=== PATIENT | female | born 1955 | race Caucasian/White ===

== ENCOUNTER → 2020-06-11 09:00 | Outpatient (CLI) | payer MEDICARE, MEDICAID, SELFPAY ==
--- NOTE | 2020-06-11 09:04 | DI.RAD.S_ITS ---
PROCEDURE: XR LUMBAR SPINE MIN 4V INDICATIONS: Lumbar radiculopathy TECHNIQUE: 5 total views of the lumbar spine were acquired, including bilateral oblique views. COMPARISON: [facility], RG, MRI L-SPINE W/O CONTRAST, 02/19/2020, 15:22. [facility], MR, L-SPINE WITHOUT CONTRAST, 11/07/2015, 8:21. [facility] [place], CR, SPINE LUMB 2 OR 3VW, 10/30/2015, 14:01. FINDINGS: Bones: Mild levoconvex scoliotic curvature is noted. 5 nonrib-bearing vertebrae are present. No vertebral body compression fractures. No suspicious bony lesions. Moderate disc space narrowing can be seen at L3-4 and L4-5. The disc heights otherwise appear well-preserved. Lower lumbar spine facet arthropathy is seen. Soft tissues: Overlying bowel gas pattern is normal. No suspicious soft tissue calcifications. An aorto bi-iliac stent graft can be seen. There is a right renal artery stent seen. Right lower pelvis and right groin clips can be seen. Oblique images: No pars defects. IMPRESSION: Focal L3-4 and L4-5 degenerative change can be seen. No definite pars defects are seen. Mild levoconvex scoliotic curvature. Postoperative changes are seen. Dictated by: Maurice Yañez M.D. on 06/11/2020 at 11:40 Approved by: Maurice Yañez M.D. on 06/11/2020 at 11:42
== END ==
PROVIDERS: PCP Physician Assistant Medical; Referring Provider Physical Medicine & Rehabilitation; Visit Provider Physical Medicine & Rehabilitation
DX: M47.26 Other spondylosis with radiculopathy, lumbar region (principal); M41.86 Other forms of scoliosis, lumbar region; I73.9 Peripheral vascular disease, unspecified
CPT/HCPCS: 72110; 99214